=== PATIENT | female | born 1955 | race Caucasian/White ===

== ENCOUNTER 2017-06-18 09:17 | Emergency (ER) | payer BC ==
[~2017-06-18] VITALS: Ht 154.9 cm; Wt 104.3 kg
[~2017-06-18 09:17] MED LIST: Tenormin50 MG PO
[2017-06-18] MEDS ORDERED: METO50 PO (09:46)
[2017-06-18 10:10] LABS: BASOPHILS ABSOLUTE AUTO 0.05 K/mm3 (0.00-0.23); BASOPHILS PERCENT AUTO 1 % (0-2); EOSINOPHILS ABSOLUTE AUTO 0.22 K/mm3 (0.00-0.68); EOSINOPHILS PERCENT AUTO 5 % (0-6); Hematocrit 38.5 % (33.0-51.0); Hemoglobin 12.2 g/dL (11.5-16.0); IMMATURE GRAN ABSOLUTE AUTO 0.02 K/mm3 (0.00-0.10); IMMATURE GRAN PERCENT AUTO 1 % (0-1); LYMPHOCYTES ABSOLUTE AUTO 1.15 K/mm3 (0.84-5.20); LYMPHOCYTES PERCENT AUTO 28 % (21-46); MONOCYTES ABSOLUTE AUTO 0.39 K/mm3 (0.16-1.47); MONOCYTES PERCENT AUTO 10 % (4-13); Mean Corpuscular HGB 26.9 pg (26.0-34.0); Mean Corpuscular HGB Conc 31.7 g/dL (31.5-36.5); Mean Corpuscular Volume 85 fL (80-100); Mean Platelet Volume 12.4 fL (9.1-12.4); NEUTROPHILS ABSOLUTE AUTO 2.25 K/mm3 (1.96-9.15); NEUTROPHILS PERCENT AUTO 55 % (41-73); Platelet Count 145 K/mm3 (150-400); Red Blood Cell Count 4.54 M/mm3 (3.80-5.20); White Blood Cell Count 4.08 K/mm3 (4.00-11.30)
[2017-06-18 10:27] LABS: Alanine Aminotransfer (ALT/SGP 23 U/L (12-78); Albumin, Blood 3.5 g/dL (3.4-5.0); Albumin/Globulin Ratio 0.8 (0.8-1.8); Alk Phos 75 U/L (50-136); Anion Gap 3 mmol/L (6-16); Aspartate Aminotrans (AST/SGOT 5 U/L (12-37); Bilirubin, Total 0.5 mg/dL (0.1-1.0); Blood Urea Nitrogen 18 mg/dL (8-24); CO2, Blood 28 mmol/L (21-32); Calcium, Blood 8.5 mg/dL (8.5-10.1); Chloride, Blood 109 mmol/L (98-108); Globulin, Blood 4.4 g/dL (2.2-4.0); Glomerular Filtration Rate 48 (60-); Glucose, Blood 101 mg/dL (70-99); Potassium, Blood 4.6 mmol/L (3.5-5.5); Sodium, Blood 140 mmol/L (136-145); Total Protein, Blood 7.9 g/dL (6.4-8.2); Troponin I <0.015 ng/mL (0.000-0.040)
== END 2017-06-18 11:34 | disposition home or self-care (01) ==
LOC: ER 09:17
PROVIDERS: Physician Assistant
DX: I10 Essential (primary) hypertension (principal); R07.89 Other chest pain; Z88.0 Allergy status to penicillin; Z79.899 Other long term (current) drug therapy
CPT/HCPCS: 36415; 71046; 80053; 84484; 85025; 93005; 93010; 99283

== ENCOUNTER 2017-06-21 16:14 | Emergency (ER) | payer BC ==
[~2017-06-21] VITALS: Ht 154.9 cm; Wt 104.3 kg
[~2017-06-21 16:14] MED LIST changes: +METO50 PO
[2017-06-21 17:00] LABS: BASOPHILS ABSOLUTE AUTO 0.05 K/mm3 (0.00-0.23); BASOPHILS PERCENT AUTO 1 % (0-2); EOSINOPHILS ABSOLUTE AUTO 0.28 K/mm3 (0.00-0.68); EOSINOPHILS PERCENT AUTO 6 % (0-6); Hematocrit 39.8 % (33.0-51.0); Hemoglobin 12.5 g/dL (11.5-16.0); IMMATURE GRAN ABSOLUTE AUTO 0.01 K/mm3 (0.00-0.10); IMMATURE GRAN PERCENT AUTO 0 % (0-1); LYMPHOCYTES ABSOLUTE AUTO 1.58 K/mm3 (0.84-5.20); LYMPHOCYTES PERCENT AUTO 33 % (21-46); MONOCYTES ABSOLUTE AUTO 0.57 K/mm3 (0.16-1.47); MONOCYTES PERCENT AUTO 12 % (4-13); Mean Corpuscular HGB 26.8 pg (26.0-34.0); Mean Corpuscular HGB Conc 31.4 g/dL (31.5-36.5); Mean Corpuscular Volume 85 fL (80-100); Mean Platelet Volume 11.9 fL (9.1-12.4); NEUTROPHILS PERCENT AUTO 48 % (41-73); Platelet Count 182 K/mm3 (150-400); RDW Standard Deviation 40.1 fL (35.1-46.3); Red Blood Cell Count 4.67 M/mm3 (3.80-5.20); White Blood Cell Count 4.79 K/mm3 (4.00-11.30)
[2017-06-21 17:15] LABS: Alanine Aminotransfer (ALT/SGP 24 U/L (12-78); Albumin, Blood 3.7 g/dL (3.4-5.0); Albumin/Globulin Ratio 0.8 (0.8-1.8); Alk Phos 82 U/L (50-136); Anion Gap 7 mmol/L (6-16); Aspartate Aminotrans (AST/SGOT 9 U/L (12-37); Bilirubin, Total 0.4 mg/dL (0.1-1.0); Blood Urea Nitrogen 18 mg/dL (8-24); CO2, Blood 27 mmol/L (21-32); Calcium, Blood 8.2 mg/dL (8.5-10.1); Chloride, Blood 106 mmol/L (98-108); Creatinine, Blood 1.06 mg/dL (0.40-1.00); Globulin, Blood 4.5 g/dL (2.2-4.0); Glomerular Filtration Rate 56 (60-); Glucose, Blood 100 mg/dL (70-99); Potassium, Blood 3.8 mmol/L (3.5-5.5); Sodium, Blood 140 mmol/L (136-145); Total Protein, Blood 8.2 g/dL (6.4-8.2); Troponin I <0.015 ng/mL (0.000-0.040)
[2017-06-21] MEDS ORDERED: Ativan1 MG SL (18:48)
[2017-06-21] MEDS ORDERED: Toprol Xl25 MG PO (18:48)
== END 2017-06-21 19:10 | disposition home or self-care (01) ==
LOC: ER 16:14
PROVIDERS: Emergency Medicine
DX: I10 Essential (primary) hypertension (principal); Z88.0 Allergy status to penicillin
CPT/HCPCS: 36415; 71046; 80053; 84484; 85025; 93005; 93010; 96374; 96375; 99284; J2060

== ENCOUNTER 2018-03-28 18:50 | Emergency (ER) | payer BC ==
[~2018-03-28] VITALS: Ht 154.9 cm; Wt 104.3 kg
[~2018-03-28 18:50] MED LIST changes: +Ativan1 MG SL; +Toprol Xl25 MG PO
[2018-03-28 19:32] LABS: BASOPHILS ABSOLUTE AUTO 0.08 K/mm3 (0.00-0.23); BASOPHILS PERCENT AUTO 1 % (0-2); EOSINOPHILS ABSOLUTE AUTO 0.27 K/mm3 (0.00-0.68); EOSINOPHILS PERCENT AUTO 4 % (0-6); Hematocrit 39.7 % (33.0-51.0); Hemoglobin 12.4 g/dL (11.5-16.0); IMMATURE GRAN ABSOLUTE AUTO 0.04 K/mm3 (0.00-0.10); IMMATURE GRAN PERCENT AUTO 1 % (0-1); LYMPHOCYTES ABSOLUTE AUTO 2.21 K/mm3 (0.84-5.20); LYMPHOCYTES PERCENT AUTO 32 % (21-46); MONOCYTES ABSOLUTE AUTO 0.68 K/mm3 (0.16-1.47); MONOCYTES PERCENT AUTO 10 % (4-13); Mean Corpuscular HGB 28.2 pg (26.0-34.0); Mean Corpuscular HGB Conc 31.2 g/dL (31.5-36.5); Mean Corpuscular Volume 90 fL (80-100); Mean Platelet Volume 10.8 fL (9.1-12.4); NEUTROPHILS PERCENT AUTO 52 % (41-73); Platelet Count 247 K/mm3 (150-400); RDW Coefficient Variation 12.7 % (11.7-14.2); RDW Standard Deviation 42.1 fL (35.1-46.3); White Blood Cell Count 6.88 K/mm3 (4.00-11.30)
[2018-03-28 19:51] LABS: Albumin, Blood 3.6 g/dL (3.4-5.0); Albumin/Globulin Ratio 0.8 (0.8-1.8); Bilirubin, Total 0.4 mg/dL (0.1-1.0); Bun/Creatinine Ratio 21.1 (12.0-20.0); Calcium, Blood 8.8 mg/dL (8.5-10.1); Creatinine, Blood 1.28 mg/dL (0.40-1.00); Globulin, Blood 4.3 g/dL (2.2-4.0); Potassium, Blood 4.7 mmol/L (3.5-5.5); Total Protein, Blood 7.9 g/dL (6.4-8.2)
[2018-03-28] MEDS ORDERED: LOSA50 PO (20:14)
[2018-03-28] MEDS ORDERED: Triamterene W/1 EACH PO (20:14)
[2018-03-28] MEDS ORDERED: Hydrocodone-Ap1 EA23 PO (20:15)
== END 2018-03-28 20:55 | disposition home or self-care (01) ==
LOC: ER 18:50
PROVIDERS: Physician Assistant
DX: I12.9 Hypertensive chronic kidney disease with stage 1 through stage 4 chronic kidney disease, or unspecified chronic kidney disease (principal); N18.3 Chronic kidney disease, stage 3 (moderate); R20.2 Paresthesia of skin
CPT/HCPCS: 80053; 85025; 93005; 93010; 99283-25

== ENCOUNTER 2018-07-24 12:01 | Inpatient (IN) | payer BC ==
[~2018-07-24] VITALS: Ht 154.9 cm; Wt 97.1 kg
[~2018-07-24 12:01] MED LIST changes: +Dyazide 37.5-21 EACH PO; +Hydrocodone-Ap1 EA23 PO
[2018-07-24] MEDS ORDERED: ALLO100 PO (12:57)
[2018-07-24] MEDS ORDERED: PRED20 PO (12:57)
[2018-07-24] MEDS ORDERED: HYDHCL25 PO (12:57)
[2018-07-24 14:05] LABS: BASOPHILS ABSOLUTE AUTO 0.03 K/mm3 (0.00-0.23); BASOPHILS PERCENT AUTO 0 % (0-2); EOSINOPHILS ABSOLUTE AUTO 2.71 K/mm3 (0.00-0.68); EOSINOPHILS PERCENT AUTO 17 % (0-6); Hematocrit 37.5 % (33.0-51.0); Hemoglobin 12.3 g/dL (11.5-16.0); IMMATURE GRAN ABSOLUTE AUTO 0.14 K/mm3 (0.00-0.10); IMMATURE GRAN PERCENT AUTO 1 % (0-1); LYMPHOCYTES ABSOLUTE AUTO 1.01 K/mm3 (0.84-5.20); LYMPHOCYTES PERCENT AUTO 6 % (21-46); MONOCYTES PERCENT AUTO 6 % (4-13); Mean Corpuscular HGB 28.1 pg (26.0-34.0); Mean Corpuscular HGB Conc 32.8 g/dL (31.5-36.5); Mean Corpuscular Volume 86 fL (80-100); Mean Platelet Volume 10.4 fL (9.1-12.4); NEUTROPHILS ABSOLUTE AUTO 10.93 K/mm3 (1.96-9.15); NEUTROPHILS PERCENT AUTO 70 % (41-73); Platelet Count 260 K/mm3 (150-400); RDW Coefficient Variation 13.2 % (11.7-14.2); RDW Standard Deviation 40.9 fL (35.1-46.3); Red Blood Cell Count 4.37 M/mm3 (3.80-5.20); White Blood Cell Count 15.72 K/mm3 (4.00-11.30)
[2018-07-24 14:22] LABS: Albumin, Blood 3.1 g/dL (3.4-5.0); Albumin/Globulin Ratio 0.8 (0.8-1.8); Bilirubin, Total 0.7 mg/dL (0.1-1.0); Bun/Creatinine Ratio 18.2 (12.0-20.0); Calcium, Blood 8.4 mg/dL (8.5-10.1); Creatinine, Blood 2.2 mg/dL (0.40-1.00); Globulin, Blood 3.9 g/dL (2.2-4.0); Potassium, Blood 4.3 mmol/L (3.5-5.5)
[2018-07-24] MEDS ORDERED: LOSA50 PO (15:11)
[2018-07-24] MEDS ORDERED: Aspirin EC81 MG PO (15:13)
--- NOTE | 2018-07-24 17:40 | NUR ---
ADMIT NOTE PATIENT ORIENTED TO ROOM, CALL LIGHT WITHIN REACH, BED IN LOW POSITION, ORIENTED TO FREQUENT ROUNDING.
--- NOTE | 2018-07-24 18:44 | NUR ---
SHIFT SUMMARY ADMIT THIS P.M. FOR EXTENSIVE RED RASH ADN DIFFICULTY CHEWING/SWALLOWING DUE TO PAIN AND DISCOMFORT. A AND OX4 INDEPENDENT IN ROOM. DENIES SOB, LS CTAB.
--- NOTE | 2018-07-25 04:47 | NUR ---
SHIFT SUMMARY PT AWAKE ON/OFF T/O NIGHT. AOX4. DENIES PAIN, NAUSEA, DIZZINESS OR SOB. VSS, EXCEPT MILD TEMP OF 100.4 LAST NIGHT, MEDICATED 1X W/TYLENOL PER ORDERS & TEMP DECREASED TO 98.8. REPORTS DIFFICULTY SWALLOWING & SORE THROAT, GAVE MEDICATION IN APPLESAUCE TO MAKE EASIER TO SWALLOW. HAS RED RASH W/SMALL PAPULES SCATTERED T/O ENTIRE BODY, HOWEVER BACK IS HOT TO TOUCH DUE TO RASH. REPORTS ITCHY SKIN & WAS MEDICATED W/HYDROXYZINE PER ORDERS. INDEPENDENT IN ROOM. CALL LIGHT IS IN REACH.
[2018-07-25 04:54] LABS: BASOPHILS ABSOLUTE AUTO 0.02 K/mm3 (0.00-0.23); BASOPHILS PERCENT AUTO 0 % (0-2); EOSINOPHILS ABSOLUTE AUTO 3.45 K/mm3 (0.00-0.68); EOSINOPHILS PERCENT AUTO 24 % (0-6); Hematocrit 34.9 % (33.0-51.0); Hemoglobin 11.3 g/dL (11.5-16.0); IMMATURE GRAN PERCENT AUTO 1 % (0-1); LYMPHOCYTES ABSOLUTE AUTO 1.33 K/mm3 (0.84-5.20); LYMPHOCYTES PERCENT AUTO 9 % (21-46); MONOCYTES ABSOLUTE AUTO 0.84 K/mm3 (0.16-1.47); MONOCYTES PERCENT AUTO 6 % (4-13); Mean Corpuscular HGB Conc 32.4 g/dL (31.5-36.5); Mean Corpuscular Volume 87 fL (80-100); Mean Platelet Volume 10.2 fL (9.1-12.4); NEUTROPHILS PERCENT AUTO 61 % (41-73); Platelet Count 253 K/mm3 (150-400); RDW Coefficient Variation 13.2 % (11.7-14.2); RDW Standard Deviation 41.6 fL (35.1-46.3); Red Blood Cell Count 4.03 M/mm3 (3.80-5.20); White Blood Cell Count 14.54 K/mm3 (4.00-11.30)
[2018-07-25 05:56] LABS: Bun/Creatinine Ratio 20.6 (12.0-20.0); C-REACTIVE PROTEIN, EXT RANGE 1.75 mg/dL (0.000-0.300); Calcium, Blood 8.1 mg/dL (8.5-10.1); Creatinine, Blood 2.23 mg/dL (0.40-1.00); Potassium, Blood 4.2 mmol/L (3.5-5.5)
[2018-07-25 15:27] LABS: Hemoglobin 11.9 g/dL (11.5-16.0); Mean Corpuscular HGB 27.7 pg (26.0-34.0); Mean Corpuscular HGB Conc 32.2 g/dL (31.5-36.5); Mean Corpuscular Volume 86 fL (80-100); Mean Platelet Volume 9.8 fL (9.1-12.4); Platelet Count 272 K/mm3 (150-400); RDW Coefficient Variation 13.3 % (11.7-14.2); RDW Standard Deviation 41.5 fL (35.1-46.3); Red Blood Cell Count 4.29 M/mm3 (3.80-5.20); White Blood Cell Count 12.48 K/mm3 (4.00-11.30)
[2018-07-25 15:56] LABS: Albumin, Blood 2.7 g/dL (3.4-5.0); Albumin/Globulin Ratio 0.8 (0.8-1.8); Bilirubin, Total 0.6 mg/dL (0.1-1.0); Bun/Creatinine Ratio 20.2 (12.0-20.0); Calcium, Blood 8.1 mg/dL (8.5-10.1); Creatinine, Blood 1.93 mg/dL (0.40-1.00); Globulin, Blood 3.2 g/dL (2.2-4.0); Potassium, Blood 3.9 mmol/L (3.5-5.5); Total Protein, Blood 5.9 g/dL (6.4-8.2)
[2018-07-25 16:05] LABS: BAND PERCENT MAN 3 % (0-8); BASOPHILS PERCENT MAN 0 % (0-2); EOSINOPHILS ABSOLUTE MAN 3.61 K/mm3 (0.00-0.68); EOSINOPHILS PERCENT MAN 29 % (0-6); LYMPHOCYTES ABSOLUTE MAN 0.24 K/mm3 (0.84-5.20); LYMPHOCYTES PERCENT MAN 2 % (21-46); MONOCYTES ABSOLUTE MAN 0.37 K/mm3 (0.16-1.47); MONOCYTES PERCENT MAN 3 % (4-13); NEUTROPHILS ABSOLUTE MAN 8.23 K/mm3 (1.96-9.15); SEG NEUTROPHILS PERCENT MAN 63 % (41-73); TOTAL CELLS COUNTED 100
[2018-07-25 17:14] LABS: Source, Urine Voided
[2018-07-25 17:19] LABS: Appearance, Urine Clear (Clear); Bilirubin, Urine Neg (Neg); Blood, Urine 2+ (Neg); Color, Urine Yellow (P-Yellow); Glucose Qualitative, Urine Neg (Neg); Ketones, Urine Neg (Neg); Leukocyte Esterase, Urine 3+ (Neg); Nitrite, Urine Pos (Neg); Protein, Urine 1+ (Neg); Specific Gravity, Urine 1.015 (1.003-1.022); Urobilinogen, Urine NORM (Normal)
[2018-07-25 17:35] LABS: Bacteria Mod /hpf; Red Blood Cells, Urine 0-2 /hpf (0-2); Squamous Epithelial Cells Few /hpf (Few)
[2018-07-25 18:19] LABS: Eosinophils-Raw #,Urine 0
[2018-07-25 18:25] LABS: White Blood Cells Urine TNTC /hpf (0-5)
--- NOTE | 2018-07-25 18:57 | NUR ---
SHIFT SUMMARY FABIEN HAS BEEN VERY UNCOMFORTABLE THIS SHIFT WITH ITCHING. SPOKE TO DR SAVAGE, HE INCREASED FREQUENCY OF PO HYDROXIZINE. DR OSBORNE VISITED, SHE ORDERED A UA (SENT) AND CXR (UNREMARKABLE). RASH EXTENSIVELY OVER ENTIRE BODY, CLOBETASOL CREAM APPLIED. MIVF RUNNING, PT HAS POOR PO INTAKE. HAD TEMP OF 101.5, CALLED AND INFORMED DR SAVAGE. PT DECLINED TYLENOL SHE DOESN'T LIKE TO SWALLOW IT IS PAINFUL. WCTM
[2018-07-26 05:17] LABS: Hematocrit 36.1 % (33.0-51.0); Hemoglobin 11.5 g/dL (11.5-16.0); Mean Corpuscular HGB 27.8 pg (26.0-34.0); Mean Corpuscular HGB Conc 31.9 g/dL (31.5-36.5); Mean Corpuscular Volume 87 fL (80-100); Mean Platelet Volume 9.8 fL (9.1-12.4); Platelet Count 251 K/mm3 (150-400); RDW Coefficient Variation 13.4 % (11.7-14.2); RDW Standard Deviation 42.5 fL (35.1-46.3); Red Blood Cell Count 4.14 M/mm3 (3.80-5.20)
[2018-07-26 05:39] LABS: BAND PERCENT MAN 7 % (0-8); BASOPHILS PERCENT MAN 0 % (0-2); EOSINOPHILS ABSOLUTE MAN 3.95 K/mm3 (0.00-0.68); EOSINOPHILS PERCENT MAN 37 % (0-6); LYMPHOCYTES PERCENT MAN 1 % (21-46); METAMYELOCYTE PERCENT MAN 1 % (0-0); MONOCYTES ABSOLUTE MAN 0.64 K/mm3 (0.16-1.47); MONOCYTES PERCENT MAN 6 % (4-13); NEUTROPHILS ABSOLUTE MAN 5.88 K/mm3 (1.96-9.15); SEG NEUTROPHILS PERCENT MAN 48 % (41-73); TOTAL CELLS COUNTED 100
[2018-07-26 05:52] LABS: Albumin, Blood 2.5 g/dL (3.4-5.0); Anion Gap 7 mmol/L (6-16); Blood Urea Nitrogen 34 mg/dL (8-24); Bun/Creatinine Ratio 18.2 (12.0-20.0); CO2, Blood 25 mmol/L (21-32); Calcium, Blood 7.9 mg/dL (8.5-10.1); Chloride, Blood 107 mmol/L (98-108); Creatinine, Blood 1.87 mg/dL (0.40-1.00); Glomerular Filtration Rate 29 (60-); Glucose, Blood 95 mg/dL (70-99); Phosphorus, Blood 3.3 mg/dL (2.5-4.9); Potassium, Blood 4.4 mmol/L (3.5-5.5); Sodium, Blood 139 mmol/L (136-145)
--- NOTE | 2018-07-26 07:56 | NUR ---
SHIFT SUMMARY PT SLEPT WELL T/O NIGHT. AOX4. DENIES NAUSEA OR PAIN. REPORTS MILD SOB W/AMBULATION BACK FROM RESTROOM. PT HAD MILD TEMP LAST NIGHT OF 101.4, MEDICATED 1X W/TYLENOL & TEMP DECREASED TO 98.0. REPORTS FEELING COLD & SHIVERING ON/OFF. LR WAS DECREASED TO 100ML/HR BECAUSE NEW IV COULD NOT HANDLE THE 150ML/HR RATE. PT REPORTS ITCHING FROM RASH & WAS MEDICATED W/HYDROZAZINE PER ORDERS. CALL LIGHT IS IN REACH.
--- NOTE | 2018-07-26 19:35 | NUR ---
SHIFT SUMMARY PT A&Ox4. CALM AND COOPERTIAVE WITH CARE. PT RESTING IN BED DURING SHIFT. UP IN ROOM IND. >90% ON RA, SOB WITH EXERTION. EPISODES OF NAUSEA, NO EMESIS, DENIES NEEDS FOR PAIN MEDICATION. PT DENIES PAIN T/O SHIFT. PT REPORTS PAIN/DIFFICULTY SWALLOWING T/O SHIFT, DR SAVAGE NOTIFIED, NEW ORDER ENTERED FOR LIQUID TYLENOL. PT REPORT SWALLOWING LIQUIDS EASIER, NEW ORDERS FOR FULL DIET. IV RATE TITRATED TO ORDERED AMOUNT, OF 150ML/HR, DR SAVAGE AND DR OSBORNE NOTIFIED OF RATE [employer] PROFESSOR NIGHT. FEBRILE THIS AM, MEDICATED WITH TYLENOL WITH POSITIVE RESULTS. OTHER VSS. NO OTHER ACUTE CHANGES NOTED DURING SHIFT. REPORT GIVEN TO ONCOMING RN.
[2018-07-27 05:30] LABS: BASOPHILS ABSOLUTE AUTO 0.05 K/mm3 (0.00-0.23); BASOPHILS PERCENT AUTO 0 % (0-2); EOSINOPHILS ABSOLUTE AUTO 3.39 K/mm3 (0.00-0.68); EOSINOPHILS PERCENT AUTO 29 % (0-6); Hematocrit 35.3 % (33.0-51.0); IMMATURE GRAN ABSOLUTE AUTO 0.28 K/mm3 (0.00-0.10); IMMATURE GRAN PERCENT AUTO 2 % (0-1); LYMPHOCYTES ABSOLUTE AUTO 1.58 K/mm3 (0.84-5.20); LYMPHOCYTES PERCENT AUTO 13 % (21-46); MONOCYTES ABSOLUTE AUTO 0.73 K/mm3 (0.16-1.47); MONOCYTES PERCENT AUTO 6 % (4-13); Mean Corpuscular HGB 27.7 pg (26.0-34.0); Mean Corpuscular HGB Conc 31.2 g/dL (31.5-36.5); Mean Corpuscular Volume 89 fL (80-100); Mean Platelet Volume 10.2 fL (9.1-12.4); NEUTROPHILS ABSOLUTE AUTO 5.88 K/mm3 (1.96-9.15); NEUTROPHILS PERCENT AUTO 49 % (41-73); Platelet Count 194 K/mm3 (150-400); RDW Coefficient Variation 13.5 % (11.7-14.2); RDW Standard Deviation 43.8 fL (35.1-46.3); Red Blood Cell Count 3.97 M/mm3 (3.80-5.20); White Blood Cell Count 11.91 K/mm3 (4.00-11.30)
[2018-07-27 05:47] LABS: International Normalized Ratio 1.09; Prothrombin Time Results 11.5 Sec (9.7-11.5)
[2018-07-27 05:57] LABS: Albumin, Blood 2.4 g/dL (3.4-5.0); Albumin/Globulin Ratio 0.7 (0.8-1.8); Bilirubin, Total 0.7 mg/dL (0.1-1.0); Bun/Creatinine Ratio 17.8 (12.0-20.0); Calcium, Blood 8.3 mg/dL (8.5-10.1); Creatinine, Blood 1.52 mg/dL (0.40-1.00); Globulin, Blood 3.3 g/dL (2.2-4.0); Potassium, Blood 4.3 mmol/L (3.5-5.5); Total Protein, Blood 5.7 g/dL (6.4-8.2)
--- NOTE | 2018-07-27 07:06 | NUR ---
SHIFT SUMMARY PT SLEPT WELL T/O NIGHT. AOX4. DENIES PAIN OR NAUSEA. REPORTS MILD SOB WHEN AMBULATING BACK FROM RESTROOM, SPO2 >90% ON RA. REPORTS RASH ON SKIN IS ABOUT THE SAME & DOESN'T FEEL IT HAS GOTTEN ANY WORSE & IS STILL ITCHY, MEDICATED W/HYDROXAZINE PER ORDERS. I DID NOTICE RASH DOES NOT FEEL HOT TO TOUCH PREVIOUS DAY. CALLED DERMATOLOGY OFFICE THIS AM & LEFT MESSAGE ON ANSWERING MACHINE. CALL LIGHT IN REACH.
--- NOTE | 2018-07-27 14:00 | NUR ---
Per jacinto stiles, I met with Nicole to discuss Advanced Directive. I gently explained this document's purpose and benefits. She tells me her know what she wants. She did not see a need for Advanced Directive. She was politely dismissive.
--- NOTE | 2018-07-27 16:34 | NUR ---
PT REPORTS ITCHING/IRRITATION OF BOTH EYES, NOTIFIED DR SAVAGE, DR SAVAGE TO ENTER ORDERS. WILL CONTINUE TO MONITOR
--- NOTE | 2018-07-27 16:51 | NUR ---
SHIFT SUMMARY PT A&Ox4. CALM AND COOPERATIVE WITH CARE. PATIENT TEARFUL THIS AFTERNOON AFTER DERMATOLOGY CONSULT, STATES "IM NOT GOING HOME ANYTIMES SOON. PT COMFORTED WITH THERAPUTIC TOUCH AND DISCUSSED THAT WE ARE ABLE TO MONITOR BETTER IN THE HOSPITAL THEN AT HOME. PT RESTING IN BED DURING SHIFT, UP TO BATHROOM IND. PT SOB WITH EXERTION, >90% ON RA, BREATHING EVEN AND UNLABORED AT REST. PT DENIES PAIN AND N/V DURING SHIFT. PT CONTINUES TO REPORT DIFFICULTY/PAINFUL SWALLOWING, APPEARS TO BE BETTER TOLERATING THE FULL LIQUID DIET WITH A BETTER APPETITE. RED RASH T/O SKIN, NEW BLISTERED NOTED THIS AM ON LEFT UPPER ARM, NOTIFIED DR SAVAGE. TOPICAL STEROIDS APPLIED THIS AM. PPT CONTINUES TO REPORTING ITCHING ON SKIN AND NEWLY REPORTING ITCHING ON EYES, NOTIFIED DR SAVAGE, NEW ORDERS ENTERED. ELEVATED BP NOTIED THIS AFTERNOON, OTHER VSS. NO OTHER ACUTE CHANGES NOTED DURING SHIFT. WILL CONTINUE TO MONITOR UNTIL REPORT GIVEN TO ONCOMING RN. DIETARY IN TO SEE PATIENT REGARDING NUTRITION NEEDS DURING SHIFT.
--- NOTE | 2018-07-28 06:45 | NUR ---
07/28/18 0600 AWAKENED FOR VITALS. C/O GENERAL ITCHING BEFORE. SEE MAR FOR MED GIVEN. RASH OVER ENTIRE BODY. VITALS STABLE. HAS DIFF. WITH SWALLOWING FLUIDS AND THUS TAKES MEDS WITH APPLESAUCE. LOW ORAL INTAKE OF FLUIDS NOTED.
[2018-07-28 16:04] LABS: Source, Urine Clean Catch
[2018-07-28 16:08] LABS: Appearance, Urine Hazy (Clear); Bilirubin, Urine Neg (Neg); Blood, Urine 1+ (Neg); Color, Urine Yellow (P-Yellow); Glucose Qualitative, Urine Neg (Neg); Ketones, Urine Neg (Neg); Leukocyte Esterase, Urine 3+ (Neg); Nitrite, Urine Neg (Neg); Protein, Urine 1+ (Neg); Urobilinogen, Urine 1+ (Normal)
[2018-07-28 16:44] LABS: Bacteria Many /hpf; Squamous Epithelial Cells Few /hpf (Few); White Blood Cells, Urine 50-100 /hpf (0-5)
--- NOTE | 2018-07-28 18:25 | NUR ---
SHIFT SUMMARY FABIEN SAW DERMATOLOGY TODAY. RECEIVED HYDROXIZINE FOR ITCHING FOR TOTAL BODY RASH. STILL HAVING DIFFICULTY AND PAIN WITH SWALLOWING, ON FULL LIQUID RENAL DIET. MIVF RUNNING. FAMILY AT BEDSIDE. INDEPENDENT IN ROOM. WCTM
--- NOTE | 2018-07-29 04:45 | NUR ---
NOC SHIFT SUMMARY PT HAS BEEN PLEASANT AND COOPERATIVE WITH CARE THIS NIGHT. HAS BEEN TAKING THE HYDROXYSINE FOR ITCHING WITH SOME SUCCESS. SHE HAS HAD SOME SWELLING IN HER L FOREARM NONPAINFUL. LIMB WAS ELEVATED AND IT DID IMPROVE. CURRENTLY SLEEPING RESTFULLY. APPEARS IN NO ACUTE DISTRESS. NO OTHER CHANGES NOTED THIS NIGHT. WILL CONTINUE TO MONITOR.
[2018-07-29 04:53] LABS: BASOPHILS ABSOLUTE AUTO 0.06 K/mm3 (0.00-0.23); BASOPHILS PERCENT AUTO 1 % (0-2); EOSINOPHILS ABSOLUTE AUTO 4.02 K/mm3 (0.00-0.68); EOSINOPHILS PERCENT AUTO 31 % (0-6); Hematocrit 29.4 % (33.0-51.0); Hemoglobin 9.3 g/dL (11.5-16.0); IMMATURE GRAN ABSOLUTE AUTO 0.58 K/mm3 (0.00-0.10); IMMATURE GRAN PERCENT AUTO 4 % (0-1); LYMPHOCYTES PERCENT AUTO 15 % (21-46); MONOCYTES ABSOLUTE AUTO 0.89 K/mm3 (0.16-1.47); MONOCYTES PERCENT AUTO 7 % (4-13); Mean Corpuscular HGB 27.5 pg (26.0-34.0); Mean Corpuscular HGB Conc 31.6 g/dL (31.5-36.5); Mean Corpuscular Volume 87 fL (80-100); Mean Platelet Volume 10.4 fL (9.1-12.4); NEUTROPHILS ABSOLUTE AUTO 5.65 K/mm3 (1.96-9.15); NEUTROPHILS PERCENT AUTO 43 % (41-73); Platelet Count 189 K/mm3 (150-400); RDW Coefficient Variation 13.8 % (11.7-14.2); RDW Standard Deviation 42.6 fL (35.1-46.3); Red Blood Cell Count 3.38 M/mm3 (3.80-5.20)
[2018-07-29 05:05] LABS: Albumin, Blood 2.2 g/dL (3.4-5.0); Albumin/Globulin Ratio 0.7 (0.8-1.8); Bilirubin, Total 0.6 mg/dL (0.1-1.0); Bun/Creatinine Ratio 14.1 (12.0-20.0); Calcium, Blood 8.3 mg/dL (8.5-10.1); Creatinine, Blood 1.28 mg/dL (0.40-1.00); Potassium, Blood 4.2 mmol/L (3.5-5.5); Total Protein, Blood 5.2 g/dL (6.4-8.2)
[2018-07-29 05:30] LABS: TOTAL CELLS COUNTED 2
--- NOTE | 2018-07-29 17:55 | NUR ---
PT IS A/OX3, PLEASANT AND COOPERATIVE, THE PT IS UP IND IN HER ROOM THE, THE PT WAS MEDICATED T/O THE DAY FOR ITCHING, THE PTS LEFT ARM IS SWOLLEN AND THE PT KEPT IT ELEVATED T/O THE DAY, THE PT WAS UP FOR A SHOWER AND ANTI ITCH SPRAY WAS USED AFTER THE SHOWER, CALL LIGHT IN REACH WILL CONTINUE TO MONITOR AND ASSESS FOR CHANGES
--- NOTE | 2018-07-30 05:22 | NUR ---
SHIFT SUMMARY: PT IS ALERT AND ORIENTED. PT IS CALM AND COOPERATIVE WITH CARE. PT CALLS APPROPRIATELY. PT IS INDEPENDENT IN THE ROOM. FAMILY IN VISITING AT THE START OF SHIFT. PT REPORTS ITCHING, GAVE PRN ATARAX ON TWO OCCASIONS. PT DENIES PAIN, NAUSEA, VOMITING, AND SOB. PT SLEPT MUCH OF THE NIGHT WHEN NOT DISTURBED. NO ACUTE CHANGES OR COMPLICATIONS. WILL REPORT TO DAY NURSE.
[2018-07-30 14:01] LABS: Source, Urine Voided
[2018-07-30 14:21] LABS: Bilirubin, Urine Neg (Neg); Blood, Urine 1+ (Neg); Glucose Qualitative, Urine Neg (Neg); Ketones, Urine Neg (Neg); Leukocyte Esterase, Urine 2+ (Neg); Nitrite, Urine Pos (Neg); Protein, Urine 1+ (Neg); Urobilinogen, Urine NORM (Normal)
[2018-07-30 14:33] LABS: Appearance, Urine Hazy (Clear); Color, Urine Yellow (P-Yellow)
[2018-07-30 14:38] LABS: Bacteria Mod /hpf; Red Blood Cells, Urine 0-2 /hpf (0-2); Squamous Epithelial Cells Mod /hpf (Few)
--- NOTE | 2018-07-30 15:12 | NUR ---
PT IS A/OX3, PLEASANT AND COOPERATIVE, THE PT IS UP IND IN THE ROOM, THE PT DENIED ANY PAIN, THE PT WAS MEDICATED FOR ITCHING T/O THE DAY, THE PT IS UP INTO THE SHOWER AT THIS TIME, PT APPEARS TO BE BREATHING EASILY ON RA AT THIS TIME, CALL LIGHT IN REACH, WILL CONTINUE TO MONITOR AND ASSESS FOR CHANGES
--- NOTE | 2018-07-31 04:42 | NUR ---
SHIFT SUMMARY: PT IS ALERT AND ORIENTED. PT IS CALM AND COOPERATIVE WITH CARE. PT CALLS APPROPRIATELY. PT IS INDEPENDENT IN THE ROOM. PT REPORTS FEELING BETTER THAN PREVIOUS NIGHT. POSSIBLE DC HOME TODAY. PT REPORTS ITCHING, MEDICATING PER EMAR. PT DENIES PAIN, NAUSEA, VOMITING, AND SOB. NO ACUTE CHANGES OR COMPLICATIONS OVERNIGHT. WILL REPORT TO DAY NURSE.
[2018-07-31] MEDS ORDERED: CLOB.05TO TOP (09:00)
[2018-07-31] MEDS ORDERED: FAMO20 PO (09:01)
--- NOTE | 2018-07-31 11:31 | NUR ---
discharge summary patient pleasant but very anxious. spoke with patient and her family about her discharge instructions and new medications. follow up appointment made prior to discharge. all questions answered. wheeled patient out and got her in the truck.
== END 2018-07-31 11:20 | disposition home or self-care (01) | DRG 607 ==
LOC: ER 12:01 → MEDS 12:02 → ENPENDDIS 07-31 09:20 → MEDS 07-31 11:20
PROVIDERS: Emergency Medicine; Internal Medicine; ADMIT Internal Medicine
DX: L27.0 Generalized skin eruption due to drugs and medicaments taken internally (principal); N17.9 Acute kidney failure, unspecified; Z68.41 Body mass index [BMI] 40.0-44.9, adult; D72.1 Eosinophilia; R21 Rash and other nonspecific skin eruption; E86.0 Dehydration; I12.9 Hypertensive chronic kidney disease with stage 1 through stage 4 chronic kidney disease, or unspecified chronic kidney disease; N18.3 Chronic kidney disease, stage 3 (moderate); T50.4X5A Adverse effect of drugs affecting uric acid metabolism, initial encounter; R13.10 Dysphagia, unspecified; K80.20 Calculus of gallbladder without cholecystitis without obstruction; D50.9 Iron deficiency anemia, unspecified; R82.71 Bacteriuria; M10.9 Gout, unspecified; I95.9 Hypotension, unspecified
CPT/HCPCS: 36415; 71046; 80048; 80053; 80069; 81001; 82550; 84484; 85007; 85025; 85027; 85610; 85651; 85730; 86140; 87040; 87077; 87086; 87186; 87205; 93005; 93010; 96360; 96361; 96372; 99285-25; C9113; G0378; J1650; J7030; J7120; J7512; Q0177

== ENCOUNTER 2018-11-17 09:27 | Day surgery (SDC) | payer BC ==
[~2018-11-17] VITALS: Ht 154.9 cm; Wt 94.9 kg
[~2018-11-17 09:27] MED LIST changes: +ALLO100 PO; +Aspirin EC81 MG; +Aspirin EC81 MG PO; +CLOB.05TO TOP; +FAMO20 PO; +HYDHCL25 PO; +HYDR10; +LOSA50 PO; +PRED20 PO
== END 2018-11-17 11:40 | disposition home or self-care (01) ==
LOC: ORSCSDS 09:27
PROVIDERS: Internal Medicine Gastroenterology
PROC: 0DBK8ZX Excision of Ascending Colon, Via Natural or Artificial Opening Endoscopic, Diagnostic (ICD-10-PCS; principal; 2018-11-17 10:45)
PROC: 0DBM8ZX Excision of Descending Colon, Via Natural or Artificial Opening Endoscopic, Diagnostic (ICD-10-PCS; principal; 2018-11-17 10:45)
DX: Z12.11 Encounter for screening for malignant neoplasm of colon (principal); D12.2 Benign neoplasm of ascending colon; D12.4 Benign neoplasm of descending colon; I10 Essential (primary) hypertension; Z79.82 Long term (current) use of aspirin; Z79.899 Other long term (current) drug therapy
CPT/HCPCS: 88305; J2704; J7120

== ENCOUNTER 2020-05-28 22:54 | Emergency (ER) | payer BC ==
[~2020-05-28] VITALS: Ht 154.9 cm; Wt 104.3 kg
[~2020-05-28 22:54] MED LIST changes: -HYDR10; +HYDR10 PO
[2020-05-29] MEDS ORDERED: AMLODIPINE BES2.5 MG PO (01:43)
[2020-05-29 02:01] LABS: BASOPHILS ABSOLUTE AUTO 0.09 K/mm3 (0.00-0.23); BASOPHILS PERCENT AUTO 2 % (0-2); EOSINOPHILS ABSOLUTE AUTO 0.21 K/mm3 (0.00-0.68); EOSINOPHILS PERCENT AUTO 4 % (0-6); Hematocrit 37.7 % (33.0-51.0); IMMATURE GRAN ABSOLUTE AUTO 0.02 K/mm3 (0.00-0.10); IMMATURE GRAN PERCENT AUTO 0 % (0-1); LYMPHOCYTES ABSOLUTE AUTO 1.34 K/mm3 (0.84-5.20); LYMPHOCYTES PERCENT AUTO 23 % (21-46); MONOCYTES ABSOLUTE AUTO 0.59 K/mm3 (0.16-1.47); MONOCYTES PERCENT AUTO 10 % (4-13); Mean Corpuscular HGB Conc 31.8 g/dL (31.5-36.5); Mean Corpuscular Volume 85 fL (80-100); Mean Platelet Volume 13.2 fL (9.1-12.4); NEUTROPHILS ABSOLUTE AUTO 3.67 K/mm3 (1.96-9.15); NEUTROPHILS PERCENT AUTO 62 % (41-73); Platelet Count 205 K/mm3 (150-400); RDW Coefficient Variation 13.1 % (11.7-14.2); RDW Standard Deviation 39.8 fL (35.1-46.3); Red Blood Cell Count 4.44 M/mm3 (3.80-5.20); White Blood Cell Count 5.92 K/mm3 (4.00-11.30)
[2020-05-29 02:02] LABS: International Normalized Ratio 0.93
[2020-05-29 02:09] LABS: Alanine Aminotransfer (ALT/SGP 18 U/L (12-78); Albumin, Blood 3.5 g/dL (3.4-5.0); Albumin/Globulin Ratio 0.9 (0.8-1.8); Alk Phos 77 U/L (50-136); Anion Gap 7 mmol/L (6-16); Aspartate Aminotrans (AST/SGOT 6 U/L (12-37); Bilirubin, Total 0.5 mg/dL (0.1-1.0); Blood Urea Nitrogen 18 mg/dL (8-24); Bun/Creatinine Ratio 16.4 (12.0-20.0); CO2, Blood 27 mmol/L (21-32); Chloride, Blood 109 mmol/L (98-108); Globulin, Blood 4.1 g/dL (2.2-4.0); Glomerular Filtration Rate 53 (60-); Glucose, Blood 104 mg/dL (70-99); Sodium, Blood 143 mmol/L (136-145); Total Protein, Blood 7.6 g/dL (6.4-8.2); Troponin I <0.015 ng/mL (0.000-0.040)
== END 2020-05-29 03:09 | disposition home or self-care (01) ==
LOC: ER 22:54
PROVIDERS: Emergency Medicine
DX: I12.9 Hypertensive chronic kidney disease with stage 1 through stage 4 chronic kidney disease, or unspecified chronic kidney disease (principal); N18.30 Chronic kidney disease, stage 3 unspecified; Z79.899 Other long term (current) drug therapy; Z79.82 Long term (current) use of aspirin; Z88.0 Allergy status to penicillin; Z88.8 Allergy status to other drugs, medicaments and biological substances
CPT/HCPCS: 36415; 71046; 80053; 83690; 83880; 84484; 85025; 85610; 93005; 93010; 99284-25; A9270

== ENCOUNTER → 2021-08-14 | Outpatient (CLI) | payer BC ==
[~2021-08-14] MED LIST changes: +AMLODIPINE BES2.5 MG PO
[2021-08-14 10:29] LABS: BASOPHILS ABSOLUTE AUTO 0.07 K/mm3 (0.00-0.23); BASOPHILS PERCENT AUTO 1 % (0-2); EOSINOPHILS ABSOLUTE AUTO 0.08 K/mm3 (0.00-0.68); EOSINOPHILS PERCENT AUTO 2 % (0-6); Hematocrit 37.4 % (33.0-51.0); Hemoglobin 12.1 g/dL (11.5-16.0); IMMATURE GRAN ABSOLUTE AUTO 0.02 K/mm3 (0.00-0.10); IMMATURE GRAN PERCENT AUTO 0 % (0-1); LYMPHOCYTES ABSOLUTE AUTO 0.58 K/mm3 (0.84-5.20); LYMPHOCYTES PERCENT AUTO 12 % (21-46); MONOCYTES ABSOLUTE AUTO 0.69 K/mm3 (0.16-1.47); MONOCYTES PERCENT AUTO 14 % (4-13); Mean Corpuscular HGB 27.3 pg (26.0-34.0); Mean Corpuscular HGB Conc 32.4 g/dL (31.5-36.5); Mean Corpuscular Volume 84 fL (80-100); NEUTROPHILS ABSOLUTE AUTO 3.53 K/mm3 (1.96-9.15); NEUTROPHILS PERCENT AUTO 71 % (41-73); Platelet Count 187 K/mm3 (150-400); RDW Coefficient Variation 12.8 % (11.7-14.2); RDW Standard Deviation 39.4 fL (35.1-46.3); Red Blood Cell Count 4.44 M/mm3 (3.80-5.20); White Blood Cell Count 4.97 K/mm3 (4.00-11.30)
[2021-08-14 10:30] LABS: Mean Platelet Volume 13.2 fL (9.1-12.4)
[2021-08-14 11:01] LABS: Albumin, Blood 3.5 g/dL (3.4-5.0); Albumin/Globulin Ratio 0.9 (0.8-1.8); Bilirubin, Total 0.7 mg/dL (0.1-1.0); Bun/Creatinine Ratio 14.6 (12.0-20.0); Calcium, Blood 8.7 mg/dL (8.5-10.1); Creatinine, Blood 1.3 mg/dL (0.40-1.00); Globulin, Blood 4.1 g/dL (2.2-4.0); Magnesium, Blood 2.1 mg/dL (1.6-2.4); Potassium, Blood 4.3 mmol/L (3.5-5.5); Total Protein, Blood 7.6 g/dL (6.4-8.2)
== END ==
LOC: LAB 09:30 → LAB SHORT 09:30
PROVIDERS: Nurse Practitioner Family
DX: N17.9 Acute kidney failure, unspecified (principal)
CPT/HCPCS: 80053; 83735; 83880; 85025